=== PATIENT | female | born 1985 | race Caucasian/White ===

== ENCOUNTER 2018-12-14 00:34 | Inpatient (IN) | payer MEDICAID ==
[~2018-12-14] VITALS: Ht 162.6 cm; Wt 57.2 kg
[2018-12-14 00:42] VITALS: Ht 162.6 cm; Wt 57.2 kg
--- NOTE | 2018-12-14 00:59 | NUR ---
PT CAME TO ED CO VAGINAL BLEEDING X2 DAYS. PT STS LAST MONTH SHE HAD SIMILAR EXCESSIVE VAGINAL BLEEDING BUT IT WAS NOT BAD THIS TIME. PT STS SHE SOAKS 1 PAD PER HOUR. PT WAS SEEN AT [facility] YESTERDAY AND WAS "GIVEN SOMETHING TO STOP THE BLEEDING". THE BLEEDING DID NOT STOP. PT APPEARS WEAK. PT A/O X4. FRIEND AT BEDSIDE. PT AMBULATED TO RESTROOM W/STEADY GAIT. NO S/S OF DISTRESS. COMFORT MEASURES IMPLEMENTED. AWAITING MSE. WILL CONTINUE TO MONITOR.
--- NOTE | 2018-12-14 01:26 | NUR ---
PT IN POSITION OF COMFORT RESPS E/U CALL LIGHT WITHIN REACH
[2018-12-14 01:45] LABS: BASOPHIL % 0.4 % (0-2); PLATELET COUNT 203 x10^3mcL (130-400); RED CELL DISTRIBUTION WIDTH 13.3 % (11.5-14.5)
[2018-12-14 02:24] LABS: CALCIUM 7.5 mg/dL (8.5-10.1); CARBON DIOXIDE 24.9 mmol/L (21-32); CHLORIDE SERUM 105 mmol/L (98-107); CREATININE SERUM 0.6 mg/dL (0.6-1.0); GFR1 > 60 mL/min; GLUCOSE SERUM 151 mg/dL (74-106); POTASSIUM SERUM 3.4 mmol/L (3.5-5.1); SODIUM SERUM 139 mmol/L (136-145)
[2018-12-14 02:31] LABS: ALKALINE PHOSPHATASE 94 U/L (46-116); ALT/SGPT 74 U/L (14-59); AST/SGOT 22 U/L (15-37); BILIRUBIN TOTAL 0.2 mg/dL (0.20-1.00); TOTAL PROTEIN, SERUM 5.8 g/dL (6.4-8.2)
--- NOTE | 2018-12-14 02:52 | NUR ---
PT IN POSITION OF COMFORT FAMILY AT BEDSIDE MD LEONE MADE AWARE OF PT BOP
--- NOTE | 2018-12-14 02:53 | NUR ---
PT TAKEN TO US VIA W/C
[2018-12-14 03:12] LABS: rbc morphology (normal/abnorm) ABNORMAL (NORMAL)
--- NOTE | 2018-12-14 03:55 | NUR ---
PT IN POSITION OF COMFORT RESPS E/U
--- NOTE | 2018-12-14 05:00 | NUR ---
PT IN POSITION OF COMFORT BLOOD ADMIN STARTED VSS RESPS E/U WILL CONTINUE TO MONITOR
[2018-12-14 05:02] LABS: CHOLESTEROL 148 mg/dL (<200); PHOSPHOROUS 2.8 mg/dL (2.5-4.9)
[2018-12-14 05:07] LABS: CHOLESTEROL/HDL RATIO 12.3; HDL CHOLESTEROL 12 mg/dL (40-60); TRIGLYCERIDES 962 mg/dL (<150)
[2018-12-14 05:10] LABS: FREE T4 0.72 ng/dL (0.76-1.46)
[2018-12-14 05:11] LABS: T3 TOTAL 1.12 ng/mL
--- NOTE | 2018-12-14 05:17 | NUR ---
PBRCS ADMIN 300ML AT 200 ML/HR IV AT 0500 VSS LUNGS CTA VSS AFEBRILE. NO BLOOD TRANSFUSION REACTION NOTED AT 0515 PBRCS 250 ML AT 333 ML/HR IV AT 0515 2 RN VERIFICATION MERE CASTANON AND RAN RN WILL CONTINUE TO MONITOR CALL LIGHT WITHIN REACH
[2018-12-14 05:20] LABS: FREE THYROXINE INDEX 1.3 ug/dL (1.4-4.5); T4(THYROXINE) 4.1 ug/dL (4.7-13.3)
[2018-12-14 05:25] LABS: microscopic required? YES; urine erythrocyte 3+ (NEGATIVE)
--- NOTE | 2018-12-14 05:27 | NUR ---
PT SENT TO TELE IN STABLE CONDITION VSS PBRCS INFUSING AT TRANSFER 250 ML AT 333ML/HR LG ARORA MADE AWARE
[2018-12-14 06:04] VITALS: BP 90/56
--- NOTE | 2018-12-14 06:45 | NUR ---
RECIEVED FROM ER DEPT VIA [facility]ID ACCOMPANIED BY ER STAFFS , DX ANEMIA , PT DROWSY UPON AMISSION TO THE UNIR, BUT ABLE TO FOLLOW COMMANDS AND RESPOND TO VERBAL STIMULUS. PT CAME IN WITH I UNIT PRBC INFUSING VIA PERIPHERAL LINE AT THE LFA #20 TOLERATING WELL. SKIN CLAER AND INTACT, NO ACUTE DISTRESS NOTED. IVF NS STARTED AT 100CC/HR AFTER PRBC COMPLETED. VS STABLE UPON COMPLETION OF BLOOD. FRIEND AT BEDSIDE VERY SUPPORTIVE OF CURRENT PT'S PLAN OF CARE. ALL NEEDS ATTENDED.
[2018-12-14 06:51] VITALS: BP 90/60
[2018-12-14 09:10] VITALS: BP 88/52
--- NOTE | 2018-12-14 09:42 | NUR ---
AAO TIMES 4. TELE # 31 SR. LUNGS CTA. NO SOB. O2 SAT ON RA 100%. BS'S ACTIVE TIMES 4. IVEY STRONG. PERIPHERAL PULSES PALPABLE. NO EDEMA. COOPERATIVE. PARENTS AND SISTER AT BEDSIDE, SUPPORTIVE. NO C/O PAIN.
--- NOTE | 2018-12-14 09:49 | NUR ---
FITNESS TEACHER ARASELI JUST TALKED TO HER ABOUT RECIEVING BLOOD, SHE IS TO GET ONE MORE UNIT OF BLOOD.
[2018-12-14 12:50] VITALS: BP 98/64
--- NOTE | 2018-12-14 13:08 | NUR ---
A UNIT OF PRBC WAS STARTED AT 1248. HER VITAL SIGNS ARE STABLE. AT 1303 THERE WAS NO SIGNS OF TRANSFUSION REACTION, AND AT 15 MINUTES AFTER START OF BLOOD, HER VITAL SIGNS ARE NORMAL. DR MILLER WILL HAVE HER SIGN CONSENT IN OR. I GAVE REPORT TO BETTY. SHE HAS BEEN NPO. SHE HAS A LITE AMOUNT OF VAGINAL BLEEDING ON HER BENJY PAD. SHE IS WASHING WITH THE NANI WIPES.
--- NOTE | 2018-12-14 13:15 | NUR ---
BETTY CASTANON FROM OR CAME AND TOOK HER DOWNSTAIRS FOR HER SURGERY. FAMILY IS COMING WITH HER.
--- NOTE | 2018-12-14 15:14 | NUR ---
BACK FROM OR AT 1503. VS'S STABLE. MINIMAL BLOOD ON BENJY PAD. FAMILY PRESENT, SUPPORTIVE. AAO TIMES 4. AMBULATORY WITH GENERALIZED WEAKNESS AMBULTING FROM GURNEY TO BED. TELE # 31 SR.
[2018-12-14 16:01] LABS: CALCIUM 7.5 mg/dL (8.5-10.1); CARBON DIOXIDE 24.1 mmol/L (21-32); CHLORIDE SERUM 107 mmol/L (98-107); CREATININE SERUM 0.6 mg/dL (0.6-1.0); GFR1 > 60 mL/min; GLUCOSE SERUM 111 mg/dL (74-106); POTASSIUM SERUM 4.2 mmol/L (3.5-5.1); SODIUM SERUM 139 mmol/L (136-145)
[2018-12-14 16:02] LABS: BASOPHIL % 0.3 % (0-2); PLATELET COUNT 179 x10^3mcL (130-400); RED CELL DISTRIBUTION WIDTH 13.7 % (11.5-14.5)
[2018-12-14 18:07] VITALS: BP 96/61
--- NOTE | 2018-12-14 18:20 | NUR ---
AAO TIMES 4. TELE # 31 SR. SHE IS EATING HER DINNER, AND SHE STILL HAS A MINIMUM OF VAGINAL SPOTTING TO HER BNEJY PAD. NO C/O PAIN. NO SOB. IV SITE CDI. COOPERATIVE. FAMLY PRESENT, SUPPORTIVE.
--- NOTE | 2018-12-14 19:30 | NUR ---
PT IS A/O x4. ON TELE #31, NSR. DENIES ANY CHEST PAIN OR PRESSURE. PULSES ARE PRESENT. NO EDEMA NOTED. LUNGS CLEAR IN ALL FEILDS. ON RA, DENIES ANY SOB. EQUAL CHEST RISE AND FALL. BOWEL SOUNDS PRESENT x4. DENIES ANY AND PAIN. PT HAS SMALL AMOUNT OF SPOTTING ON PAD. PT HASN'T CHANGE PAD THIS DAY. VOIDS FREELY. DENIES ANY PAIN AT THIS TIME. IV ON LFA, INTACT AND PATENT. NO SIGN OF IRRITATION OR INFILTRATION. FAMILY AT BEDSIDE. BED AT [facility]. CALL LIGHT WITHIN REACH. WILL CONTINUE TO MONITOR.
[2018-12-14 21:31] VITALS: BP 98/58
--- NOTE | 2018-12-14 23:50 | NUR ---
TELE WAS REMOVED PLACED WITH MONTIOR TECH.
--- NOTE | 2018-12-15 00:38 | NUR ---
PT IS RESTING IN BED WITH BOTH EYES CLOSED. NO SIGN OF DISTRESS NOTED. BED IS AT LOWEST SETTING. CALL LIGHT WITHIN REACH. BOTH IVS INTACT AND PATENT. FAMILY MEMBER AT BEDSIDE. WILL CONTINUE TO MONTIOR.
[2018-12-15 05:40] VITALS: BP 102/70
--- NOTE | 2018-12-15 07:05 | NUR ---
PT IS RESTING IN BED. DENIES ANY PAIN OR DISTRESS AT THIS TIME. IV INTACT AND PATENT. BED IS AT LOWEST SETTING CALL LIGHT WITHIN REACH. WILL ENDORSE TO AM NURSE.
--- NOTE | 2018-12-15 07:31 | NUR ---
RECEIVED REPORT FROM ROSEMARIE CASTANON. PT RESTING COMFORATLBY IN BED. SALINE LOCK TO RFA IS PATENT AND INTACT. IV TO LFA IS PATENT AND INFUSING NS @ 100 ML/HR. NO REDNESS OR PAIN. PT ON ROOM AIR. NO C/O SOB AND NO DISTRESS NOTED. NONC/O PAIN. ALL NEEDS MET. ALL QUESTIONS AND CONCERNS ADDRESSED.
[2018-12-15 07:36] LABS: CALCIUM 8.1 mg/dL (8.5-10.1); CARBON DIOXIDE 24.7 mmol/L (21-32); CHLORIDE SERUM 109 mmol/L (98-107); CREATININE SERUM 0.5 mg/dL (0.6-1.0); GFR1 > 60 mL/min; GLUCOSE SERUM 123 mg/dL (74-106); POTASSIUM SERUM 4.1 mmol/L (3.5-5.1); SODIUM SERUM 140 mmol/L (136-145)
[2018-12-15 08:14] LABS: BASOPHIL % 0.2 % (0-2); PLATELET COUNT 202 x10^3mcL (130-400); RED CELL DISTRIBUTION WIDTH 13.7 % (11.5-14.5)
[2018-12-15 09:11] VITALS: BP 99/68
[2018-12-15] MEDS ORDERED: COLACE100 MG PO (10:03)
[2018-12-15] MEDS ORDERED: LEVAQUIN750 MG PO (10:03)
[2018-12-15] MEDS ORDERED: FERROUS SULFAT325 M2 PO (10:03)
[2018-12-15 12:47] VITALS: BP 99/68
--- NOTE | 2018-12-15 13:30 | NUR ---
PATIENT STABLE FOR DISCHARGE PER MD. DISCHARGE INSRUCTIONS AND SUMMARY DISCUSSED WITH PATIENT. PT VERBALIZED UNDERSTANDING AND AGREES TO FOLLOW UP WITH DR MILLER. ID BANDS CUT. IVS REMOVED AND IV POLE CLEARED. PT ESCORTED TO LOBBY VIA WHEELCHAIR.
== END 2018-12-15 13:37 | disposition home or self-care (01) | DRG 517 ==
LOC: ED 00:34 → DU 04:31 → MU 12-15 03:05
PROVIDERS: Emergency Medicine; Obstetrics & Gynecology; ADMIT General Practice
PROC: 30233N1 Transfusion of Nonautologous Red Blood Cells into Peripheral Vein, Percutaneous Approach (ICD-10-PCS; 2018-12-14)
PROC: 0UDB7ZZ Extraction of Endometrium, Via Natural or Artificial Opening (ICD-10-PCS; principal; 2018-12-14 13:30)
DX: N92.1 Excessive and frequent menstruation with irregular cycle (principal); R65.10 Systemic inflammatory response syndrome (SIRS) of non-infectious origin without acute organ dysfunction; D50.0 Iron deficiency anemia secondary to blood loss (chronic); N39.0 Urinary tract infection, site not specified
CPT/HCPCS: 83880; 84439; C1758; J1885; J1956; J3010; J7030; J7040; P9016; Q0163

== ENCOUNTER 2018-12-18 18:30 | Emergency (ER) | payer MEDICAID ==
[~2018-12-18] VITALS: Ht 157.5 cm; Wt 54.4 kg
[~2018-12-18 18:30] MED LIST: COLACE100 MG PO; FERROUS SULFAT325 M2 PO; LEVAQUIN750 MG PO
[2018-12-18 18:52] VITALS: Ht 157.5 cm; Wt 54.4 kg
[2018-12-18 21:12] LABS: BASOPHIL % 0.3 % (0-2); PLATELET COUNT 267 x10^3mcL (130-400); RED CELL DISTRIBUTION WIDTH 14.1 % (11.5-14.5)
[2018-12-18 23:13] LABS: BASOPHIL % 0.4 % (0-2); PLATELET COUNT 242 x10^3mcL (130-400); RED CELL DISTRIBUTION WIDTH 14.1 % (11.5-14.5)
[2018-12-19 02:09] VITALS: BP 97/71
== END 2018-12-19 02:09 | disposition home or self-care (01) ==
LOC: ED 18:30
PROVIDERS: Emergency Medicine
DX: N93.9 Abnormal uterine and vaginal bleeding, unspecified (principal); D64.9 Anemia, unspecified; Z98.890 Other specified postprocedural states
CPT/HCPCS: 36415